=== PATIENT | male | born 1995 | race Caucasian/White ===

== ENCOUNTER 2024-04-25 17:10 | Day surgery (SDC) | payer BC, SELFPAY ==
[2024-04-25] VITALS (10 sets, daily range): BP systolic 122–144; BP diastolic 75–99; PULSE 69–81; TEMP 36.2–36.6; O2SAT 96–99; BMI 35.3
--- NOTE | 2024-04-25 17:18 | XR_ITS ---
The [address] [address] Patient Name: ANNA QUAN MRN: [id number] date: 1995 Sex: M Assigned Patient Location: ER Current Patient Location: [facility] [[email or web address]] Accession/Order Number: [id number] Exam Date: 04/25/2024 17:25 Report Date: 04/25/2024 18:58 At the request of: REJI FERNÁNDEZ Procedure: XR finger LT min 2V EXAM: XR finger LT min 2V , 04/25/2024 HISTORY: laceration COMPARISON: None. TECHNIQUE: X-rays of the left index finger 3 views. FINDINGS: The bony structures and joint spaces of the left are unremarkable. No fracture or dislocation. The bones are well-mineralized. No radiopaque foreign body or subcutaneous air. XR/XR finger LT min 2V IMPRESSION: Unremarkable x-rays of the left index finger. Electronically authenticated by: GELACIO BRUCE Date: 04/25/2024 18:58
--- NOTE | 2024-04-25 17:22 | ED_ITS ---
HPI HPI - General Adult General Chief complaint: Wound/Laceration Stated complaint: LACERATION/PUNCTURE Time Seen by Provider: 04/25/24 17:11 Source: patient Mode of arrival: walk-in History of Present Illness HPI narrative: Patient is a 28-year-old male who presents to the emergency department for a laceration on the dorsum of the left hand at the second MCP joint. He is right- hand dominant and states he lacerated the finger with a utility knife. He is noted to have tendon exposure in the wound and difficulty with extension at the MCP joint. He had no other associated injuries. Related Data Home Medications ?Medication ?Instructions ?Recorded ?Confirmed cetirizine 10 mg tablet (24Hour 10 mg PO DAILY PRN allergy symptoms 04/25/24 04/25/24 Allergy) Allergies Allergy/AdvReac Type Severity Reaction Status Date / Time No Known Drug Allergies Allergy Verified 04/25/24 17:18 Opioid HPI Opioid Management Most Recent Opioid Data: No Data to Display Review of Systems ROS Constitutional Denies: fever or chills Ears, nose, mouth, and throat Denies: throat pain or neck pain Respiratory Denies: shortness of breath Gastrointestinal Denies: nausea or vomiting Integumentary/Breast Denies: rash Neurological Denies: headache Hematologic/Lymphatic Denies: easy bruising or easy bleeding Exam Narrative Exam Narrative: Gen.: Awake, alert, in no distress Head: Normocephalic, atraumatic ENT: Moist mucous membranes Respiratory: No respiratory distress Extremities: 2 cm laceration over the left MCP joint. Minimal venous oozing noted. Tendon is visualized in the wound and patient has an extensor tendon deficit at the second MCP joint. No flexor tendon deficit. Psych: Normal mood and affect Neuro: No focal neuro deficit Skin: Warm, dry, intact Constitutional Vital Signs, click to edit/add: Last Vital Signs Temp 98 F 04/25/24 17:14 Pulse 74 04/25/24 17:14 Resp 20 04/25/24 17:14 BP 140/99 H 04/25/24 17:14 Pulse Ox 98 04/25/24 17:14 Course Vital Signs Vital signs: Vital Signs Temperature 98 F 04/25/24 17:14 Pulse Rate 74 04/25/24 17:14 Respiratory Rate 20 04/25/24 17:14 Blood Pressure 140/99 H 04/25/24 17:14 Pulse Oximetry 98 05/29/24 17:14 Temperature 98 F 04/25/24 17:14 Pulse Rate 74 04/25/24 17:14 Respiratory Rate 20 04/25/24 17:14 Blood Pressure 140/99 H 04/25/24 17:14 Pulse Oximetry 98 04/25/24 17:14 Medical Decision Making MDM Narrative Medical decision making narrative: X-ray obtained and the patient has tetanus updated in the ER. I discussed the case with Dr. Calvin for orthopedics to secure follow-up for the patient, he is upstairs finishing a procedure and recommended that the patient be admitted for surgical procedure at this time. Patient is agreeable. Stable at time of admission Medical Records Medical records reviewed: Yes I reviewed the patient's medical records Discharge Plan Discharge Patient Disposition: Admitted to Surgery
[2024-04-25] MEDS: ADACEL DIPH,PERTUSS(ACELL),TET VAC/PF 0.5 ML ADULT SYRINGE IM (17:33)
[2024-04-25] MEDS: LACTATED RINGER'S SOLUTION 1,000 ML 1000 ML IV ×2 (19:02→19:45)
[2024-04-25] MEDS: BUPIVACAINE HCL 0.5% PF 50 MG/10 ML VIAL INJ (19:48)
--- NOTE | 2024-04-25 20:15 | PM.ORPRC ---
Procedure Note Date of procedure: 04/25/24 Pre-op diagnosis: Extensor tendon laceration to left index finger Post-op diagnosis: same as pre-op Procedure: Operation: Extensor tendon repair left index finger over MP joint Operative procedure: After informed consent was obtained the patient was brought to the operating room where general anesthetic was administered. A well-padded proximal arm tourniquet was placed and the left arm was prepped and draped in usual sterile fashion. The arm was elevated, exsanguinated, and the tourniquet was inflated to 200 mmHg. 1 L of fluid was used to irrigate out the laceration which was transverse and 2 cm in length over the index finger MP joint dorsal aspect. No gross contamination was present. Exploration of the wound revealed complete laceration of the extensor tendon and dorsal vu with minimal retraction. Ends of the tendon were in good condition and clean laceration. A 3-0 FiberWire suture was then used to place a running locking suture along the entire length of the tendon laceration. Nice repair was achieved. Tourniquet was deflated. Wound was again irrigated. Normal tenodesis effect of the index finger was achieved and with this no gapping at the repair site. Wound was infiltrated with 10 mL 0.5% Marcaine plain. Skin was closed with a 4-0 nylon suture in a simple fashion. A sterile dressing was placed followed by a volar splint with the fingers extended 10 degrees at the MP joint and wrist extended 20 degrees. Patient was awakened and brought to the recovery room in stable condition. There were no intraoperative or immediate postoperative complications. Anesthesia: General-LMA Surgeon: Que Calvin Estimated blood loss (mL): 1 Pathology: none sent Condition: stable Disposition: PACU
--- NOTE | 2024-04-25 20:59 | PC.NURSE ---
2039; spoke with pt,okay given to discharge pt from PACU to home.
== END 2024-04-25 20:50 | disposition home or self-care (01) ==
LOC: ER 17:44 → SURGOUT 18:47 → ER 18:50 → SURGOUT 18:50 → MS 20:42 → SURGOUT 20:58
PROVIDERS: Emergency Provider Emergency Medicine; PCP Family Medicine; Visit Provider Orthopaedic Surgery
PROC: (CPT 1810; principal; 2024-04-25 19:00)
DX: S66.321A Laceration of extensor muscle, fascia and tendon of left index finger at wrist and hand level, initial encounter (principal); Z23 Encounter for immunization; W26.0XXA Contact with knife, initial encounter
CPT/HCPCS: 26418; 73140; 90471; 90715; 99285; J1094; J2704

== ENCOUNTER 2024-05-22 13:40 | Outpatient (RCR) | payer BC, SELFPAY | END 2024-07-05 11:01 | disposition home or self-care (01) | LOC: OT 13:40 | PROVIDERS: PCP Family Medicine; Visit Provider Orthopaedic Surgery | DX: S66.902D Unspecified injury of unspecified muscle, fascia and tendon at wrist and hand level, left hand, subsequent encounter (principal) | CPT/HCPCS: 97018; 97140; 97165; 97530; 97760 ==